=== PATIENT | male | born 1965 | race Caucasian/White ===

== ENCOUNTER 2017-08-30 17:14 | Emergency (ER) | payer OTHER ==
[2017-08-30 17:29] VITALS: BP 174/70
[2017-08-30] MEDS ORDERED: Acetaminophen/oxyCODONE 325-5 MG Tab PO ONE ×2 (17:48→18:38)
[2017-08-30] MEDS ORDERED: Ketorolac 60 MG/2 ML SDV IM ONE (17:48)
--- NOTE | 2017-08-30 18:02 | EDM.PDOC ---
ED HPI GENERAL MEDICAL PROBLEM - General Chief Complaint: Lower Extremity Injury/Pain Stated Complaint: RT INSIDE OF KNEE INJURY Time Seen by Provider: 08/30/17 17:48 Source of Information: Reports: Patient History Limitations: Reports: No Limitations - History of Present Illness INITIAL COMMENTS - FREE TEXT/NARRATIVE: PT STATES HE ACCIDENTALLY TWISTED RIGHT KNEE WHILE EXITING CAR. DID NOT FALL TO GROUND OR SUSTAIN DIRECT TRAUMA. DENIES ANY OTHER INJURY Onset: Today Duration: Hour(s): Location: Reports: Lower Extremity, Right Quality: Reports: Ache, Throbbing Severity: Moderate Improves with: Reports: Cold Therapy Worsens with: Reports: Movement Context: Reports: Trauma Associated Symptoms: Reports: No Other Symptoms Right Knee Pain Score (Numeric/FACES): 8 - Related Data Allergies Allergy/AdvReac Type Severity Reaction Status Date / Time No Known Drug Allergies Allergy Cannot Verified 08/30/17 17:29 Remember Home Meds: Home Meds Cholecalciferol (Vitamin D3) [Vitamin D3] 2,000 units PO DAILY 08/30/17 [History ] Levothyroxine Sodium [Synthroid] 75 mcg PO DAILY 08/30/17 [History] Meloxicam 15 mg PO DAILY 08/30/17 [History] Metoprolol Succinate [Toprol Xl] 50 mg PO DAILY 08/30/17 [History] Sertraline HCl [Zoloft] 100 mg PO DAILY 08/30/17 [History] atorvaSTATin [Lipitor] 40 mg PO BEDTIME 08/30/17 [History] Social & Family History - Tobacco Use Smoking Status *Q: Current Every Day Smoker Years of Tobacco use: 16 Packs/Tins Daily: 0.5 Second Hand Smoke Exposure: No - Caffeine Use Caffeine Use: Reports: Coffee, Soda - Alcohol Use Days Per Week of Alcohol Use: 2 Number of Drinks Per Day: 1 Total Drinks Per Week: 2 - Recreational Drug Use Recreational Drug Use: No Review of Systems - Review of Systems Review Of Systems: ROS reveals no pertinent complaints other than HPI. Constitutional: Reports: No Symptoms Eyes: Reports: No Symptoms Ears: Reports: No Symptoms Nose: Reports: No Symptoms Mouth/Throat: Reports: No Symptoms Respiratory: Reports: No Symptoms Cardiovascular: Reports: No Symptoms GI/Abdominal: Reports: No Symptoms Genitourinary: Reports: No Symptoms Musculoskeletal: Reports: Leg Pain, Joint Pain (RIGHT KNEE) Skin: Reports: No Symptoms Neurological: Reports: No Symptoms Psychiatric: Reports: No Symptoms ED EXAM, GENERAL - Physical Exam Exam: See Below Exam Limited By: No Limitations General Appearance: Alert, WD/WN, No Apparent Distress Throat/Mouth: Normal Inspection, Normal Oropharynx, No Airway Compromise Head: Atraumatic, Normocephalic Respiratory/Chest: No Respiratory Distress Back Exam: Normal Inspection Extremities: Leg Pain (RIGHT KNEE PAIN WITH PALP AND ROM/ mild inferior patella edema / no lig laxity), Limited Range of Motion (SECONDARY TO PAIN) Neurological: Alert, Oriented, Normal Cognition Psychiatric: Normal Affect, Normal Mood Skin Exam: Warm, Dry, Intact, Normal Color, No Rash Course - Vital Signs Last Recorded V/S: Last Vital Signs Temp 98.6 F 08/30/17 17:26 Pulse 63 08/30/17 17:26 Resp 18 08/30/17 17:26 BP 174/70 H 08/30/17 17:26 Pulse Ox 93 L 08/30/17 17:26 - Orders/Labs/Meds Orders: Active Orders 24 hr Category Date Time Status Knee 3V Rt [CR] Stat Exams 08/30/17 17:35 Ordered Acetaminophen/oxyCODONE [Percocet 325-5 MG] Med 08/30/17 17:48 Once 1 tab PO ONETIME ONE Ketorolac [Toradol] Med 08/30/17 17:48 Once 60 mg IM ONETIME ONE Medication Orders Ketorolac Tromethamine (Toradol) 60 mg IM ONETIME ONE Stop: 08/30/17 17:49 Oxycodone/Acetaminophen (Percocet 325-5 Mg) 1 tab PO ONETIME ONE Stop: 08/30/17 17:49 Meds: Medications Generic Name Dose Route Start Last Admin Trade Name Freq PRN Reason Stop Dose Admin Ketorolac Tromethamine 60 mg 08/30/17 17:48 Toradol IM 08/30/17 17:49 ONETIME ONE Oxycodone/Acetaminophen 1 tab 08/30/17 17:48 Percocet 325-5 Mg PO 08/30/17 17:49 ONETIME ONE - Radiology Interpretation Free Text/Narrative:: xray right knee shows small effusion without fracture or dislocation - Re-Assessments/Exams Free Text/Narrative Re-Assessment/Exam: 08/30/17 18:44 PT AFEBRILE, NONTOXIC APPEARING, VSS, PAIN CONTROLLED. CRUTCHES/IMMOBILIZER/ PERCOCET TO GO Departure - Departure Time of Disposition: 18:45 Disposition: Home, Self-Care 01 Condition: Good Clinical Impression: Right knee sprain Qualifiers: Encounter type: initial encounter Involved ligament of knee: unspecified ligament Qualified Code(s): S83.91XA - Sprain of unspecified site of right knee , initial encounter - Discharge Information Instructions: Knee Sprain, [id number], Knee Immobilizer, [id number], Pain Medicine Instructions, [id number], Crutch Use, [id number] Referrals: Pattie Mandel MD [Primary Care Provider] - Additional Instructions: FOLLOW UP AT [facility] IN NEXT 1-2 DAYS TO SCHEDULE MRI. RETURN TO ER SOONER IF SYMPTOMS WORSEN - My Orders Last 24 Hours: My Active Orders 08/30/17 17:35 Knee 3V Rt [CR] Stat 08/30/17 17:48 Acetaminophen/oxyCODONE [Percocet 325-5 MG] 1 tab PO ONETIME ONE Ketorolac [Toradol] 60 mg IM ONETIME ONE - Assessment/Plan Last 24 Hours: My Active Orders 08/30/17 17:35 Knee 3V Rt [CR] Stat 08/30/17 17:48 Acetaminophen/oxyCODONE [Percocet 325-5 MG] 1 tab PO ONETIME ONE Ketorolac [Toradol] 60 mg IM ONETIME ONE Assessment:: RIGHT KNEE SPRAIN Plan: F/U AT CLINIC
== END 2017-08-30 19:00 | disposition home or self-care (01) ==
LOC: KA.ED 17:14
DX: S83.91XA Sprain of unspecified site of right knee, initial encounter (principal); F17.210 Nicotine dependence, cigarettes, uncomplicated; Z79.899 Other long term (current) drug therapy; X50.1XXA Overexertion from prolonged static or awkward postures, initial encounter
CPT/HCPCS: 73562; 96372; 99283; A9270; J1885